=== PATIENT | female | born 1960 | race Caucasian/White ===

== ENCOUNTER 2022-05-25 13:18 | Observation (INO) | payer OTHER, SELFPAY ==
[2022-05-25] VITALS (15 sets, daily range): BP systolic 147–173; BP diastolic 64–88; PULSE 87–99; RESP 12–26; TEMP 36.5–36.8; O2SAT 81–100; BMI 37.0
--- NOTE | ~2022-05-25 | XR_ITS ---
EXAMINATION: XR chest 1V portable 05/25/2022 13:53 INDICATION: Left-sided facial numbness PROCEDURE: AP portable chest COMPARISON: No prior studies for comparison. FINDINGS: There is ill-defined infiltrates of the left midlung. No edema, effusion or pneumothorax. T he cardiomediastinal silhouette is within normal limits. There are no pleural effusions. There is n o pneumothorax suspected. IMPRESSION: 1: Ill-defined infiltrates of the left mid and lower lung which may represent atelectasis or develop ing pneumonia. Reviewed, dictated and finalized at location A. IMPRESSION: 1: Ill-defined infiltrates of the left mid and lower lung which may represent atelectasis or developing pneumonia.
--- NOTE | ~2022-05-25 | CT_ITS ---
EXAMINATION: CT brain wo con DATE: 05/25/2022 13:36 INDICATION: Numbness to face. TECHNIQUE: Computed tomography (CT) of the head was performed without intravenous contrast. The mA wa s adjusted according to patient size. Iterative reconstruction technique was employed. The dose-lengt h product was 605.33 mGy-cm. COMPARISON: None FINDINGS: There is no intracranial hemorrhage, acute infarction, or abnormal intracranial mass lesion . The ventricles are normal in size. There is mucosal thickening in the paranasal sinuses. The orbits are normal. The mastoid air cells are normal. IMPRESSION: 1. Normal brain. I called this result to Dr. Cervantes. Reviewed, dictated and finalized at location A.
--- NOTE | ~2022-05-25 | US_ITS ---
EXAMINATION: US carotid duplex BI DATE: 05/26/2022 08:17 INDICATION: Transient ischemic attack. TECHNIQUE: Grayscale, color Doppler, and pulsed Doppler images of the cervical carotid arteries were obtained. The degree of vessel stenosis is placed in one of the following categories: normal, <50%, 5 0-69%, >=70% but less than near-occlusion, near-occlusion, or total occlusion. Note that percent sten osis relative to normal distal artery lumen diameter is indirectly measured from velocity measurement s as described by Enrico, et al. Radiology 2003; 229:340-346. COMPARISON: None. FINDINGS: RIGHT: The right common carotid artery (CCA) peak systolic velocity (PSV) is 77 cm/s. The right internal car otid artery (ICA) PSV is 82 cm/s. The right ICA end-diastolic velocity (EDV) is 28 cm/s. The right IC A/CCA PSV ratio is 1.1. Grayscale and color Doppler images yield an estimate of <50% diameter reducti on from plaque in the ICA. There is antegrade flow in the right vertebral artery. LEFT: The left CCA PSV is 91 cm/s. The left ICA PSV is 95 cm/s. The left ICA EDV is 35 cm/s. The left ICA/C CA PSV ratio is 1.1. Grayscale and color Doppler images yield an estimate of <50% diameter reduction from plaque in the ICA. There is antegrade flow in the left vertebral artery. IMPRESSION: 1. <50% stenosis in the right internal carotid artery. 2. <50% stenosis in the left internal carotid artery. Reviewed, dictated and finalized at location A.
--- NOTE | ~2022-05-25 | MR_ITS ---
EXAMINATION: MR brain/brain stem wo con DATE: 05/26/2022 07:57 INDICATION: Left facial numbness. Left arm numbness. TECHNIQUE: Magnetic resonance imaging (MRI) of the brain and brainstem was performed without intraven ous contrast. COMPARISON: Head CT 05/25/2022 FINDINGS: There is no intracranial hemorrhage, acute infarction, or abnormal intracranial mass lesion . The ventricles are normal in size. There is a left otomastoid effusion. There is mucosal thickening in the paranasal sinuses. The orbits are normal. IMPRESSION: 1. Normal brain. Reviewed, dictated and finalized at location A. IMPRESSION: 1. Normal brain.
--- NOTE | 2022-05-25 13:30 | ED.NEUROSD ---
HPI - Neuro Symptoms/Deficit General Chief Complaint: Suspected CVA Stated Complaint: Left Side, Left Hand Numbness Time Seen by Provider: 05/25/22 13:30 History of Present Illness HPI Narrative: Patient is a 61-year-old female with a history of hypertension, hypothyroidism presenting as a stroke alert. Patient states that she has been taking antibiotics for the last week for an ear infection. States that she also had an episode of pinkeye earlier this week. Today, she was eating when she noticed that the left side of her mouth felt numb. This was at 11:45 AM. States it felt like she was trying to eat after getting dental work. States she also noticed some numbness in her left arm. She denies weakness, speech or gait changes, vision changes. She denies headache, chest pain, shortness of breath, abdominal pain, nausea or vomiting, leg swelling. Related Data Home Medications Medication Instructions Recorded Confirmed amlodipine 2.5 mg tablet 2.5 mg PO DAILY 05/25/22 05/25/22 clindamycin HCl 300 mg capsule 300 mg PO Q6H 05/25/22 05/25/22 levothyroxine 112 mcg tablet 112 mcg PO DAILY 05/25/22 05/25/22 Allergies Allergy/AdvReac Type Severity Reaction Status Date / Time Cephalosporins Allergy Unknown RASH Verified 05/25/22 13:39 erythromycin base Allergy Unknown RASH Verified 05/25/22 13:39 nitrofurantoin Allergy Unknown RASH Verified 05/25/22 13:39 Penicillins Allergy Unknown RASH Verified 05/25/22 13:39 Sulfa (Sulfonamide Allergy Unknown RASH Verified 05/25/22 13:39 Antibiotics) Review of Systems Review of Systems: All systems reviewed & are unremarkable except as noted in HPI and below PMFSH Family History Family History (Updated 05/25/22 @ 18:13 by Yolanda Bolanos RN) Mother Colon cancer Hypertension Social History Social History Smoking status: Never smoker Alcohol intake: never Substance use: never Spiritual care concerns: No Exam Narrative: GENERAL: Well-appearing, well-nourished, and in no acute distress. HEAD: Normocephalic, atraumatic. EYES: PERRLA and EOMI. ENT: Nares clear, no rhinorrhea or epistaxis. Mucous membranes moist. NECK: Supple. CHEST: Clear to auscultation. No respiratory distress. HEART: Regular rate and rhythm. No murmur heard. Normal peripheral pulses. ABDOMEN: Soft, nontender, nondistended, normal active bowel sounds. EXTREMITIES: Normal range of motion. No edema. SKIN: Warm, dry, no rash. NEURO: Alert and oriented x3. Mild left-sided facial droop with forehead sparing. Endorses mild sensory deficit left arm and left face. 5 out of 5 strength in all extremities. No pronator drift. PSYCH: Normal mood and affect. Course Vital Signs Vital signs: Vital Signs Temperature 98 F 05/25/22 13:21 Pulse Rate 96 05/25/22 13:21 Respiratory Rate 16 05/25/22 13:21 Blood Pressure 164/67 H 05/25/22 13:21 Pulse Oximetry 98 05/25/22 13:21 Temperature 97.7 F 05/25/22 17:50 Pulse Rate 87 05/25/22 17:50 Respiratory Rate 12 05/25/22 17:50 Blood Pressure 147/64 H 05/25/22 17:50 Pulse Oximetry 97 05/25/22 17:50 MDM - Neuro Symptoms/Deficit MDM Narrative Medical decision making narrative: Patient is a 61-year-old female presenting as a stroke alert. Patient is hypertensive, otherwise vitals are within normal limits. Exam is remarkable for the above. CT head shows no acute abnormalities. On reevaluation, the patient states that her symptoms have been gradually improving. EKG per my interpretation shows normal sinus rhythm, normal axis and intervals, no ST elevations or depressions. Blood work is unremarkable. Concern for possible TIA. I spoke with the hospitalist who has accepted the patient for admission. Lab Data Result diagrams: 05/25/22 13:35 05/25/22 13:35 Labs: Lab Results 05/25/22 05/25/22 05/25/22 Range/Units 13:29 13:35 13:35 W
--- NOTE | 2022-05-25 13:32 | ECG_ITS ---
Measurements Intervals [place] Rate: 98 P: 54 LA: 151 QRS: 11 QRSD: 84 T: 22 QT: 348 QTc: 445 Interpretive Statements SINUS RHYTHM POSSIBLE LEFT ATRIAL ENLARGEMENT BORDERLINE ECG NO PREVIOUS ECG AVAILABLE FOR COMPARISON Electronically Signed On 05-25-2022 14:18:25 CDT by Britton Rossi D.O.
[2022-05-25 13:42] LABS: Basophils Absolute Auto 0.1 K/mm3 (0.0-0.1); Basophils Percent Auto 0.9 % (0.2-1.2); Eosinophils Absolute Auto 0.3 K/mm3 (0-0.3); Eosinophils Percent Auto 3.3 % (0-4.4); Hematocrit 44.7 % (37.0-47.0); Hemoglobin 14.3 g/dL (12.0-15.0); Immature Granulocyte Absolute 0.33 K/mm3 (0.00-0.031); Immature Granulocyte Percent A 3.6 % (0-0.5); Lymphocytes Absolute Auto 2.33 K/mm3 (0.9-3.2); Lymphocytes Percent Auto 25.7 % (18.3-44.2); Mean Corpuscular Hemoglobin 28.5 pg (26-34); Mean Platelet Volume 10.4 fl (7.4-10.4); Monocytes Absolute Auto 0.8 K/mm3 (0.1-0.6); Monocytes Percent Auto 8.9 % (2.6-8.5); Neutrophils Absolute Auto 5.2 K/mm3 (1.3-6.7); Neutrophils Percent Auto 57.6 % (45.5-73.1); Platelet Count Result 263 k/mm3 (150-375); Red Blood Count 5.02 M/mm3 (4.2-5.4); Red Cell Distribution Width 13.1 % (11.5-14.5); White Blood Count 9.1 K/mm3 (4.5-10.0)
[2022-05-25 13:52] LABS: Alanine Aminotransferase 13 U/L (6-35); Albumin Level 4.1 g/dL (3.5-5.1); Alkaline Phosphatase 87 U/L (38-126); Anion Gap 8 mmol/L (8-16); Aspartate Amino Transferase 26 U/L (14-36); Bilirubin,Total 0.4 mg/dL (0.2-1.3); Blood Urea Nitrogen 11 mg/dL (7-17); Calcium 8.7 mg/dL (8.4-10.2); Carbon Dioxide 27 mmol/L (22-30); Chloride 102 mmol/L (98-107); Estimated CRCL calculation 62 ml/min; Estimated Glomerular Filt Rate > 60; Glucose 125 mg/dL (65-110); Potassium 3.7 mmol/L (3.4-5.0); Sodium 137 mmol/L (137-145)
[2022-05-25 13:56] LABS: Prothrombin Time 13.1 Seconds (11.1-14.7)
[2022-05-25 13:57] LABS: Partial Thromboplastin Time 30.4 SECONDS (22.3-36.8)
[2022-05-25 14:05] LABS: Troponin I < 0.012 ng/mL (0.000-0.034)
[2022-05-25 14:21] LABS: Glucose Point of Care 130 mg/dl (65-105)
[2022-05-25 16:40] LABS: SARS-CoV-2 RNA PCR Negative
--- NOTE | 2022-05-25 19:19 | PM.IMHP ---
H&P: HPI History of Present Illness Date/Time: 05/25/22 19:19 Chief Complaint: left sided facial numbness Narrative: Patient is a 61-year-old female with a history of hypertension, hypothyroidism presenting as a stroke alert.? Patient states that she has been taking antibiotics for the last week for an ear infection that started about a week ago. She complains of left-sided hearing loss and muffle sound with pain and hoarseness of voice. She has allergy to multiple antibiotics and hence was started on clindamycin. She also had an episode of pinkeye earlier this week. This morning while she was eating she felt like her left side the face and mouth was numb and also had pain right beneath her left ear . She also states that her the muscles around her eye was fighting against each other. She also felt some numbness in her left arm which has completely resolved now. She still feels little numb in her left face. She describes the numbness as when she gets an injection for tooth extraction. She any chest pain shortness and breath pain nausea vomiting. Review of Systems Review of Systems: - CONSTITUTIONAL: Denies weight loss, fever and chills. - HEENT: Denies changes in vision and Reports change in hearing - RESPIRATORY: Denies SOB and cough. - CV: Denies palpitations and CP. - GI: Denies abdominal pain, nausea, vomiting and diarrhea. - : Denies dysuria and urinary frequency. - MSK: Denies myalgia and joint pain. - SKIN: Denies rash and pruritus. - NEUROLOGICAL: Denies headache and syncope. - PSYCHIATRIC: Denies recent changes in mood. Denies anxiety and depression. [facility] Family History Family History (Updated 05/25/22 @ 18:13 by Yolanda Bolanos RN) Mother Colon cancer Hypertension Social History Social History Smoking status: Never smoker Alcohol intake: never Substance use: never Spiritual care concerns: No Meds Home Medications and Allergies Home Medications Medication Instructions Recorded Confirmed Type amlodipine 2.5 mg tablet 2.5 mg PO DAILY 05/25/22 05/25/22 History clindamycin HCl 300 mg capsule 300 mg PO Q6H 05/25/22 05/25/22 History levothyroxine 112 mcg tablet 112 mcg PO DAILY 05/25/22 05/25/22 History Allergies Allergy/AdvReac Type Severity Reaction Status Date / Time Cephalosporins Allergy Unknown RASH Verified 05/25/22 13:39 erythromycin base Allergy Unknown RASH Verified 05/25/22 13:39 nitrofurantoin Allergy Unknown RASH Verified 05/25/22 13:39 Penicillins Allergy Unknown RASH Verified 05/25/22 13:39 Sulfa (Sulfonamide Allergy Unknown RASH Verified 05/25/22 13:39 Antibiotics) Vital Signs Vital Signs - 24 hr 05/25/22 13:21 05/25/22 13:39 05/25/22 13:41 Temperature 98 F Pulse Rate 96 90 94 Respiratory Rate 16 19 22 H Blood Pressure 164/67 H 173/88 H Pulse Oximetry 98 100 98 05/25/22 13:42 05/25/22 13:45 05/25/22 13:47 Temperature Pulse Rate 97 90 87 Respiratory Rate 22 H 17 24 H Blood Pressure 153/74 H Pulse Oximetry 99 81 L 99 05/25/22 14:19 05/25/22 14:35 05/25/22 14:45 Temperature Pulse Rate 87 87 92 Respiratory Rate 19 20 20 Blood Pressure Pulse Oximetry 99 98 98 05/25/22 14:46 05/25/22 15:00 05/25/22 15:01 Temperature Pulse Rate 96 91 92 Respiratory Rate 15 26 H 21 H Blood Pressure 151/80 H 164/75 H Pulse Oximetry 100 93 05/25/22 17:50 Temperature 97.7 F Pulse Rate 87 Respiratory Rate 12 Blood Pressure 147/64 H Pulse Oximetry 97 Exam Narrative: GENERAL: The patient is well developed, not in acute distress HEENT: Nonicteric sclerae, PERRLA, EOMI. Oropharynx clear. Moist mucous membranes. Conjunctivae appear well perfused. his left ear tympanic membrane dusky with erythema and retracted. Mastoid area nontender CHEST: Chest wall is nontender. HEART: Regular rate and rhythm without murmur, rubs, or gallops LUNGS: Clear to auscult
[2022-05-25 20:21] LABS: LDL Cholesterol Direct 90 mg/dL
[2022-05-25 20:39] LABS: Cholesterol 195 mg/dL (0-200); HDL Direct 50 mg/dL
[2022-05-25] MEDS: predniSONE 20 MG TABLET 60 MG PO (21:59)
[2022-05-25 23:26] LABS: Hemoglobin A1C 5.8 % (<5.7)
[2022-05-25] MEDS: ASPIRIN 325 MG TABLET PO (23:30)
[2022-05-25] MEDS: CIPROFLOXACIN HCL 0.3% OP SOLN 2.5 ML BTL 1 DROP EACH EYE (23:45)
[2022-05-26] VITALS: PULSE 87
[2022-05-26 00:05] LABS: Triglycerides 155 mg/dL (<150)
[2022-05-26 00:13] LABS: Free T4 Free Thyroxine Reflex 1.52 ng/dL (0.78-2.19)
[2022-05-26 01:04] LABS: Total Triiodothyronine (T3) 2.24 NG/ML (0.97-1.69)
[2022-05-26 04:00] VITALS: PULSE 81
[2022-05-26] MEDS: CIPROFLOXACIN HCL 0.3% OP SOLN 2.5 ML BTL 1 DROP EACH EYE ×3 (06:04→12:05)
[2022-05-26] MEDS: LEVOTHYROXINE SODIUM 112 MCG TABLET PO (06:04)
[2022-05-26 06:52] VITALS: BP 141/75; PULSE 96; RESP 18; TEMP 36.2; O2SAT 95
[2022-05-26] MEDS: amLODIPine BESYLATE 2.5 MG TABLET PO (08:34)
[2022-05-26] MEDS: predniSONE 20 MG TABLET 60 MG PO (08:34)
[2022-05-26] MEDS: LORATADINE 10 MG TABLET PO (08:34)
[2022-05-26] MEDS: FLUTICASONE PROPIONATE 0.05% NA SPR 16 GM BTL (*BKC) 1 SPRAY NASAL (08:35)
[2022-05-26 12:00] VITALS: PULSE 107
[2022-05-26 14:00] VITALS: BP 168/80; PULSE 107; RESP 18; TEMP 36.7; O2SAT 98
--- NOTE | 2022-05-26 14:13 | WPDNEURCNPN ---
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 Hypertension 2. Hypothyroidism, patient reportedly has been taking the medications for the ear infection reportedly she was eating when she noted the left side of her mouth was numb, along with that she felt numbness of the left upper extremity though no other associated symptomatology. Patient has been taking amlodipine 2.5 mg daily clindamycin 300 mg every 6hour levothyroxine 112 micrographia daily she is allergic to multiple medication as outlined she has never a smoker or drinker initial examination in the Emergency Room documented the left-sided facial droop, normal vital signs blood pressure 164/67 normal CBC, normal BMP, blood sugar of 125 and normal hepatic enzymes normal MRI of the brain and normal Doppler study of the carotids. Review of Systems Review of Systems: All systems reviewed & are unremarkable except as noted in HPI and below PMFSH Family History Family History (Updated 05/25/22 @ 18:13 by Yolanda Bolanos RN) Mother Colon cancer Hypertension Social History Social History Smoking status: Never smoker Alcohol intake: never Substance use: never Spiritual care concerns: No Meds Home Medications and Allergies Home Medications Medication Instructions Recorded Confirmed Type amlodipine 2.5 mg tablet 2.5 mg PO DAILY 05/25/22 05/25/22 History clindamycin HCl 300 mg capsule 300 mg PO Q6H 05/25/22 05/25/22 History levothyroxine 112 mcg tablet 112 mcg PO DAILY 05/25/22 05/25/22 History Allergies Allergy/AdvReac Type Severity Reaction Status Date / Time Cephalosporins Allergy Unknown RASH Verified 05/25/22 13:39 erythromycin base Allergy Unknown RASH Verified 05/25/22 13:39 nitrofurantoin Allergy Unknown RASH Verified 05/25/22 13:39 Penicillins Allergy Unknown RASH Verified 05/25/22 13:39 Sulfa (Sulfonamide Allergy Unknown RASH Verified 05/25/22 13:39 Antibiotics) Vital Signs Vital Signs - 24 hr 05/25/22 14:19 05/25/22 14:35 05/25/22 14:45 Temperature Pulse Rate 87 87 92 Respiratory Rate 19 20 20 Blood Pressure Pulse Oximetry 99 98 98 Oxygen Delivery 05/25/22 14:46 05/25/22 15:00 05/25/22 15:01 Temperature Pulse Rate 96 91 92 Respiratory Rate 15 26 H 21 H Blood Pressure 151/80 H 164/75 H Pulse Oximetry 100 93 Oxygen Delivery 05/25/22 17:50 05/25/22 22:41 05/25/22 20:00 Temperature 36.5 C 36.8 C Pulse Rate 87 90 90 Respiratory Rate 12 20 20 Blood Pressure 147/64 H 163/69 H Pulse Oximetry 97 98 98 Oxygen Delivery Room Air 05/25/22 20:00 05/26/22 00:00 05/26/22 04:00 Temperature Pulse Rate 99 87 81 Respiratory Rate Blood Pressure Pulse Oximetry Oxygen Delivery 05/26/22 06:52 05/26/22 08:00 05/26/22 12:00 Temperature 36.2 C L Pulse Rate 96 107 H Respiratory Rate 18 Blood Pressure 141/75 H Pulse Oximetry 95 Oxygen Delivery Room Air Exam Const: General: cooperative, healthy appearing, comfortable and no acute distress Nutritional Appearance: overweight Orientation/consciousness: oriented to person, oriented to place and oriented to time Limitations: no limitations HENMT: Head: normocephalic Ears: hearing grossly normal bilaterally General nose exam: Normal external nose present and Normal nares present Face and sinus: normal facial exam Mouth: Yes Normal oral and palatal mucosa present Eyes: Ge
--- NOTE | 2022-05-26 14:38 | PM.DS ---
DS: Admitting Diagnosis Discharge Date 05/26/2022 Admitting Diagnosis left facial numbness DS: Discharge Diagnosis Discharge Diagnosis (1) Left sided numbness: Code(s): R20.0 - Anesthesia of skin Status: Acute (2) Hypertension: Code(s): I10 - Essential (primary) hypertension Status: Acute (3) Hyperlipidemia: Code(s): E78.5 - Hyperlipidemia, unspecified Status: Acute DS: Summary Hospital Course Hospital Course: # left facial numbness: This is likely? related to facial palsy Likely related to adjacent left ear infection.? started on steroid.? Treat left ear infection aggressively.? She is on clindamycin unsure if this could have adequate coverage for left ear infection.? Discussed antibiotic option with the patient as she has several different antibiotic allergies.? She is on ciprofloxacin past.? Started on levofloxacin. Also on allergy regimen with Flonase nasal spray and Claritin. MRI was done which came back negative. Discussed with neurologist. Likely Mcgee's palsy etiology for symptoms. Will give Medrol Dosepak and 70 course of levofloxacin. Follow-up with PCP discharge in week. # left arm numbness:? unclear etiology. CT head is negative. possible TIA.? neurology consulted from the ER.? MRI brain Came back negative for stroke discussed with neurology. #? left ear infection:? Still active clinical evaluation.? Antibiotics switched to levofloxacin.? Stop clindamycin # hypertension resume home medication # hyper lipidemia:? # hypothyroidism # DVT prophylaxis SCDs # code status full code Time Spent with Patient Time attestation: Total time spent providing and/or coordinating discharge services: Exam Narrative: GENERAL: The patient is well developed, not in acute distress HEENT: Nonicteric sclerae, PERRLA, EOMI. Oropharynx clear. Moist mucous membranes. Conjunctivae appear well perfused. his left ear tympanic membrane dusky with erythema and retracted. Mastoid area nontender CHEST: Chest wall is nontender. HEART: Regular rate and rhythm without murmur, rubs, or gallops LUNGS: Clear to auscultation bilaterally. no respiratory distress ABDOMEN: Soft, positive bowel sounds, non-tender, no organomegaly. SKIN: No rash, no excessive bruising, petechiae, or purpura. NEUROLOGIC: Cranial nerves II-XII intact except mild facial nerve palsy lower motor neuron type, alert and oriented x 3, no gross motor deficits EXTREMITIES: no edema, cyanosis or clubbing DS: Data Data Completed and Pending Labs on day of discharge: Labs from last 24 hours 05/25/22 05/25/22 05/25/22 19:33 19:33 19:33 Hemoglobin A1c Triglycerides 155 H Cholesterol 195 LDL Cholesterol Direct 90 HDL Direct 50 TSH (Reflex) Free T4 1.52 Total T3 2.24 H SARS-CoV-2 RNA (RT-PCR) 05/25/22 05/25/22 05/25/22 19:33 19:33 15:56 Hemoglobin A1c 5.8 H Triglycerides Cholesterol LDL Cholesterol Direct HDL Direct TSH (Reflex) 5.630 H Free T4 Total T3 SARS-CoV-2 RNA (RT-PCR) Negative Imaging Radiologist's impression: ITS Impressions Head CT 05/25/22 13:37 IMPRESSION: 1. Normal brain. I called this result to Dr. Cervantes. Chest X-Ray 05/25/22 13:54 IMPRESSION: 1: Ill-defined infiltrates of the left mid and lower lung which may represent atelectasis or developing pneumonia. Brain MRI 05/26/22 07:57 IMPRESSION: 1. Normal brain. Carotid Doppler Study 05/26/22 09:37 IMPRESSION: 1. <50% stenosis in the right internal carotid artery. 2. <50% stenosis in the left internal carotid artery. Discharge Plan Discharge Attending physician on discharge: Gilbert Donovan Consulting providers: Soy Reynoso Discharging Clinician: Gilbert Donovan Anticipated Discharge Date/Time: 05/26/22 14:34 Patient Disposition: Home, Self-Care Activity: as tolerated Diet: heart healthy Patient Instructions: Antibiotic Form
== END 2022-05-26 15:40 | disposition home or self-care (01) ==
LOC: ANHED 14:40 → ANH3MEDSUR 17:04
PROVIDERS: Admitting Provider Chiropractor; Emergency Provider Emergency Medicine; PCP Family Medicine; Visit Provider Internal Medicine
DX: G51.0 Bell's palsy (principal); R20.0 Anesthesia of skin; I10 Essential (primary) hypertension; E78.5 Hyperlipidemia, unspecified; E03.9 Hypothyroidism, unspecified; I65.23 Occlusion and stenosis of bilateral carotid arteries; H66.92 Otitis media, unspecified, left ear; R49.0 Dysphonia; R91.8 Other nonspecific abnormal finding of lung field; Z20.822 Contact with and (suspected) exposure to COVID-19; Z79.51 Long term (current) use of inhaled steroids; Z79.2 Long term (current) use of antibiotics; Z79.899 Other long term (current) drug therapy; Z82.49 Family history of ischemic heart disease and other diseases of the circulatory system
CPT/HCPCS: 36415; 70450; 70551; 71045; 80053; 80061; 82948; 83036; 84439; 84443; 84480; 84484; 85025; 85610; 85730; 93005; 93880; 96365; 99285; A9270; C9803; G0378; J1956; J7512; U0003; U0005